=== PATIENT | female | born 1970 | race Caucasian/White ===

== ENCOUNTER 2017-10-30 07:32 | Observation (INO) | payer OTHER, SELFPAY ==
[2017-10-24 11:15] LABS: Hematocrit 40.9 % (37-47); Mean Corp Hgb Conc 31.8 g/gl (32-36); Mean Corpuscular Hgb 27.4 pg (27.0-32.0); Mean Corpuscular Volume 86.3 fL (81-99); Mean Platelet Vol. 10.6 fl (6.2-12.0); Platelet Count 314 K/mm3 (150-450); RBC Distribution Width CV 12.9 % (11.6-14.6); RBC Distribution Width SD 41.1 fl (35.1-43.9); Red Blood Count 4.74 M/mm3 (4.2-5.4); White Blood Count 9.2 K/mm3 (4.4-11.0)
[2017-10-24 11:22] LABS: Prothrombin Time (Protime)PT. 13.5 SECONDS (11.7-14.9)
[2017-10-24 11:24] LABS: Scan Indicated on CBC? Y/N NO
[2017-10-24 11:45] LABS: Pregnancy, Serum, hCG Quali. NEGATIVE Negative (0-9 Nonpreg)
[2017-10-30] VITALS (12 sets, daily range): BP systolic 117–136; BP diastolic 58–94; PULSE 65–89; RESP 16–18; TEMP 36.1–37.1; O2SAT 93–100; BMI 38.1
[2017-10-30 06:34] LABS: Internal QC Validated? YES +Cl - CLEAR BKGD; Pregnancy, Urine Negative Negative
--- NOTE | 2017-10-30 07:30 | HYST_PTH ---
PATIENT: RYANNE MEZA LOC: MS2 U#:[id number] AGE/SX: 47/F ROOM: [facility] [place] RE10/30/[address]: Dr. Bj Gillespie MD : 1970 BED: 1 DIS: 10/31/2017 SPEC #: [id number] RECD: 10/30/17 09:41 STATUS: CARLI KEYLA #: [id number] ANUSHKA: 10/30/17 07:[address]: Bj Gillespie DEPT: SURGICAL PATHOLOGY RECD BY: Dereck Boggs ENTERED: 10/30/17 10:19 SP TYPE: HYSTERECT OTHR DR: Dr. Sharad Cisneros MD Tissues: Uterus, NOS Procedures: Surgery Specimen Level V HEADER OPERATION: Hysterectomy, lap-assisted vaginal, bilateral salpingo-oophorectomy PRE-OP DIAGNOSIS: Excessive and frequent menstruation with regular cycle and intramural leiomyoma of uterus TISSUE SUBMITTED: Uterus, bilateral tubes and ovaries MICROSCOPIC DIAGNOSIS Uterus, bilateral tubes and ovaries, vaginal hysterectomy and bilateral salpingo-oophorectomy: Cervix ? focal cystic changes. Endometrium ? proliferative endometrium. Myometrium ? leiomyomas (largest measuring 4.5 cm in greatest dimension). Adenomyosis. Bilateral fallopian tubes - no pathologic diagnosis. Bilateral ovaries ? physiologic follicular and corpus luteal cysts and mesothelial inclusion cyst. SJ:erich 10/31/17 MICROSCOPIC DESCRIPTION Slides are reviewed. GROSS DESCRIPTION Received in fixative is one container labeled with the patient's name and designated uterus. The specimen consists of a morcellated uterus with attached right and left fallopian tubes received in seven fragments ranging in size from 1.2 to 12 cm in greatest dimension and in aggregate weighing 495 gm. A distinct endocervical canal is not identified. Portions resembling ectocervix are present and free of mass lesions. A triangular-shaped endometrial cavity is present measuring 3.5 x 4 cm. The endometrium is light thomas, velvety and glistening and measures up to 0.2 cm in thickness. The myometrium is distorted by multiple spherical, rubbery nodules ranging in size from 0.2 to 4.5 cm. On cut sections, the nodules display a whirled appearance without areas of cyst formation or necrosis. More than 30 such nodules are identified. The nodules appear to be intramyometrial, subserosal and submucosal in location. Both ovaries are similar in appearance and are light thomas-yellow in color. One measures 4 x 3 x 2 cm. Serial sections of this ovary reveal multiple cysts ranging in size from 0.2 to 1.2 cm and containing clear to bloody fluid. The adjacent fallopian tube measures 5.5 cm in length and 0.8 cm in average diameter. A normal fimbriated end is visible. The other ovary measures 3.8 x 2 x 1.2 cm. Serial sections of this second ovary also reveal multiple cysts ranging in size from 0.2 to 1 cm and containing clear fluid. The adjacent fallopian tube is similar in appearance to the tube previously described and measures 7.5 cm in length and 0.7 cm in average diameter. Pharmacy Benefit Manager sections are submitted in 12 cassettes as follows: 1 & 2 ? cervix, 3-6 ? endometrium and adjacent myometrium, 7 ? largest myometrial mass, 8 ? second largest myometrial mass, 9 ? third largest myometrial mass, 10 ? one ovary, 11 ? fallopian tube adjacent to this ovary, 12 ? the other ovary and fallopian tube. / AM:erich 10/30/17 TC:1 CPT: 82457
[2017-10-30] MEDS: Clindamycin 900 MG/50 ML BAG 75 MG IV (07:35)
--- NOTE | 2017-10-30 07:41 | PCM.DC.VHY ---
Discharge Diet: No Restrictions Discharge Activity: Return to Normal Activity, May Not Drive, May not drive while taking narcotic pain medications., May Shower Return to work on:: 12/02/17 May resume sexual activity in: 6-8 weeks Call your doctor if your incision/area has: Sudden Increased Bleeding, Increased Pain/ Swelling, Increased Redness, Foul Smelling Discharge, Swelling at the incision site Call your doctor if you observe: Fever of 101 or Higher, Change in Color, Inability to urinate, Inability to have a bowel movement, Using more than one pad per hour, Shortness of breath, Chest pain, Calf discomfort, Uncontrolled pain Remove Dressing in (days):: 1 Cleanse incision/area with: Soap & Water Allergies/Adverse Reactions: Allergies Penicillins Allergy (Verified 10/25/17 08:11) Unknown Medications to take at Discharge Vortioxetine Hydrobromide [Brintellix] 10 mg PO DAILY 10/25/17 Estrogens, Conjugated [Premarin] 0.625 mg PO DAILY #30 tab 10/30/17 Ibuprofen [Ibu] 600 mg PO Q6H PRN PRN #30 tab 10/30/17 Oxycodone [Oxyir] 5 - 10 mg PO Q4H PRN PRN 7 Days #30 tab 10/30/17 The following prescriptions were given: Oxycodone [Oxyir] 5 - 10 mg PO Q4H PRN PRN 7 Days #30 tab PRN Reason: Mod-Severe Pain (4-10/10) Ibuprofen [Ibu] 600 mg PO Q6H PRN PRN #30 tab PRN Reason: Pain Estrogens, Conjugated [Premarin] 0.625 mg PO DAILY #30 tab Primary Care Physician: Sharad Cisneros MD [Primary Care Provider] - Please Follow Up With: Bj Gillespie MD When: one week Proposed Discharge Date: 10/31/17
--- NOTE | 2017-10-30 07:49 | OP.PCM_ITS ---
Problem List (1) Menorrhagia with irregular cycle Status: Chronic (2) Fibroid uterus Status: Chronic Qualifiers: Uterine leiomyoma location: intramural, submucous, and subserous Qualified Code(s): D25.1 - Intramural leiomyoma of uterus; D25.0 - Submucous leiomyoma of uterus; D25.2 - Subserosal leiomyoma of uterus Report of Operation Date of Procedure: 10/30/17 Pre-Operative Diagnosis: Menorrhagia, Fibroid Uterus Post-Operative Diagnosis: Same Surgery/Procedure Performed:: Laparoscopic Assisted Vaginal Hysterectomy, Bilateral Salpingooophorectomy Description of Surgical Findings:: 15 weeks size fibroid uterus, normal appearing ovaries and fallopian tubes. Some scarring of bladder to anterior lower uterine segment. Normal appearing gall bladder and appendix. Stomach appeared normal. Liver appeared to have fatty changes. coding team lead: Linda Nicholson Type of Anesthesia:: General Anesthesiologist: Levar Cespedes Special Medications: none Specimen's removed: Uterus, ovaries, and fallopian tubes Drains: michelle Estimated Blood Loss (mL): 600cc Fluids Replaced: 1300cc Description of Procedure: Niecy was taken to the OR with IV running. Discussion was made prior to the procedure and she determined would like to have ovaries removed at the time of the hysterectomy. She was given clindamycin and gentamicin intravenously for surgical prophylaxis prior to the start of the surgery. General anesthesia was introduced without complication. She was then prepped and draped in the dorsal lithotomy. A michelle catheter was then placed. Attention was then directed to the vagina where a weighted speculum was placed. The cervix was identified, grasped with a single toothed tenaculum and a Zumi type uterine manipulator was placed. The tenaculum and speculum were then removed. Attention was directed to the abdomen where a 5mm vertical incision was made in the lower base of the umbilicus. The underlying subcutaneous tissue was dissected down to the level of fascia using blunt dissection with a Darline clamp. The abdominal wall was then elevated and a Veress needle was placed through the umbilical defect into the abdomen. The abdomen was then inflated with CO2 gas to a pressure of 12 Torr. The Veress needle was removed and replaced with a 5mm trocar and sleeve. The trocar was then removed and replaced with the laparoscope. Two lateral 5 mm side ports were then placed one on the left an one on the right side about level with the umbilicus and lateral to the inferior epigastric vessels. These were placed under direct visualization of the laparoscope. Hemostasis was assured after placement of the laparoscopic ports. A thorough survey of the pelvis and abdomen was then performed. Attention was then directed to the left adnexa. The left infindibulopelovic ligament was identified, grased with the LIgasure device, cauterized and cute. The mesoovarian tissue was the dissected from the distal end to the uterus. The Round ligament was the cauterized and cut. The Broad ligament was then dissected from the upper portion of the uterus to the cervicouterine junction. The anterior and posterior leaves of the brosd ligament were then bluntly and the uterine artery cauterized and cut. The vesicouterine peritoneum was then carefully undermined and dissected thus creating a bladder flap. The paracervical tissue was then dissected close to the cervix down to the level of the uterosacral ligament. Attention was then directed to the right side of the pelvis which was similarly dissected. Attention was then directed to the vagina were a weighted speculum was placed. The uterine manipulator was removed and replaced with two single toothed tenaculum for traction. The cervicovaginal epithelium was then superficially injected with a dilute pitressin solution. Using the Bovie cautery the cervicovaginal epithelium was circumfrentially incised then pushed superiorly. The vesicovaginal peritoneum was then identified and entered sharply. The posterior rectovaginal peritoneum was similarly identified and entered sharply. A long weighted speculum was placed through this defect. The uterosacral ligaments were then clamped with Héctor clamps, cut and suture ligated. These ties were held for future incorporation with the lateral angles of the vaginal cuff. The paracervical tissue on each side was the grasped with Héctor clamps cut and suture ligated thus removing the remaining connections of the cervix to the pelvic sidewall. Due to the bulk of the uterus it was necessary to bivalve the uterus in order to facilitate removal. Once the uterus , cervix, and adnexa were removed the vaginal cuff was closed with a series of interrupted and figure of eight sutures of 0-VIcryl suture. All instruments were then removed from the vagina and attention directed back to the abdomen. The abdomen was reinflated with CO2 gas. A thorough inspection of the surgical sites found them to be hemostatic. Lindy was placed over the surgical sites. The laparoscopic port sites were removed after gas was evacuated, The skin incisions were closed with subcuticular sutures of 4-0 Monocryl. Sponge, lap, instrucment, and needle counts were correct. SHe was reversed from anesthesia and taken to the recovery room in stable condition. Grafts/Implants Used: none - Complications none - Admit VTE Documentation VTE Present on Admission: No VTE Mechan Device Prophylaxis: SCD's VTE Pharm Prophylaxis ordered?: No
[2017-10-30] MEDS: Vasopressin 20 UNITS/ML Vial (08:55)
[2017-10-30] MEDS: Bupivacaine 0.25% 30 ML Vial (09:30)
[2017-10-30] MEDS: Clindamycin 600 MG/50 ML BAG 100 MG IV ×2 (12:25→17:39)
[2017-10-30] MEDS: Ketorolac 30 MG/ML Syringe IV ×2 (12:26→20:13)
[2017-10-30] MEDS: Acetaminophen 500 MG Tablet 1000 MG PO ×2 (13:32→22:52)
[2017-10-30] MEDS: Lactated Ringers 1,000 ML 125 ML IV ×2 (14:36→22:55)
[2017-10-30] MEDS: oxyCODONE 5 MG Tablet PO ×2 (17:39→22:53)
[2017-10-30] MEDS: Estrogens,Conj. 0.625 MG Tablet PO (17:40)
--- NOTE | 2017-10-30 18:08 | NURSING ---
k pad to abdomen
[2017-10-30] MEDS: HYDROmorphone 1 MG/ML Syringe IV (18:55)
[2017-10-31 02:00] VITALS: BP 114/70; PULSE 82; RESP 16; TEMP 36.8; O2SAT 98
[2017-10-31] MEDS: Ketorolac 30 MG/ML Syringe IV ×3 (02:15→14:54)
[2017-10-31] MEDS: Acetaminophen 500 MG Tablet 1000 MG PO ×2 (06:00→14:54)
[2017-10-31 06:18] LABS: Hemoglobin 9.8 g/dl (12.0-15.0); Mean Corp Hgb Conc 32.7 g/gl (32-36); Mean Corpuscular Hgb 28.4 pg (27.0-32.0); Mean Platelet Vol. 10.7 fl (6.2-12.0); Platelet Count 265 K/mm3 (150-450); RBC Distribution Width CV 12.7 % (11.6-14.6); RBC Distribution Width SD 38.8 fl (35.1-43.9); Red Blood Count 3.45 M/mm3 (4.2-5.4); Scan Indicated on CBC? Y/N NO; White Blood Count 19.7 K/mm3 (4.4-11.0)
[2017-10-31 07:21] VITALS: O2SAT 98
--- NOTE | 2017-10-31 08:06 | PN.OBGYN_ITS ---
Subjective: Appears well this morning. Pain rated 2/10. Has taken some oxycodone and ibuprofen. No significant nausea. Tolerating PO. Able to void this morning. Urine is still blood tinged but much clearer than last evening. Objective: Afeb VSS. Hgb appropriate considering surgical blood loss. Urine output good. - Physical Exam General: Alert, Oriented x3, Cooperative, No apparent distress Lungs: Clear to auscultation, Normal air movement Cardiovascular: Regular rate, Regular Rhythm Abdomen: Soft, Non Tender, Non-Distended, Passing Flatus, - - Incision sites dry , no erythema Extremities: No edema Skin: No rashes Neurological: Neuro grossly intact Psych/Mental Status: Normal Affect Comment: Scant vaginal spotting Vital Signs Temp Pulse Resp BP Pulse Ox 98.3 F 82 16 114/70 98 10/31/17 02:00 10/31/17 02:00 10/31/17 02:00 10/31/17 02:00 10/31/17 02:00 Oxygen Delivery Method Room Air Weight: 188 lb 11.451 oz Body Mass Index (BMI) 38.1 Intake and Output for Last 24 Hours 10/29/18 10/30/17 10/31/17 23:59 23:59 23:59 Intake Total 1400 / 1400 4750 / 4750 Output Total 450 / 450 2600 / 2600 Balance 950 / 950 2150 / 2150 Laboratory Tests Past 24 Hrs 10/31/17 05:48 WBC 19.7 H RBC 3.45 L Hgb 9.8 L Hct 30.0 L MCV 87.0 MCH 28.4 MCHC 32.7 RDW 12.7 RDW Differential 38.8 Plt Count 265 MPV 10.7 Medical Necessity - Tobacco Use Smoking Status: Never smoker Tobacco Use: Non-smoker Assessment/Plan Appears well on POD#1 s/p LAVH/BSO. Home going instructions and warnings given. Particularly emphasized watching for occult signs of bladder injury including worsening hematuria, inability to void, or flank pain given hematuria after surgery. She is able to void this morning which makes likelyhood of urinary injury less likely. Will be discharged home on estrogen therapy given BSO.
--- NOTE | 2017-10-31 08:06 | PCM.DC.SUM ---
Discharge Date and Diagnosis Date of Admission: 10/30/17 Date of Discharge: 10/31/17 - Primary Discharge Diagnosis S/P LAVH/BSO - Secondary Discharge Diagnosis Chronic Problems Menorrhagia with irregular cycle (Chronic) Fibroid uterus (Chronic) Hospital Course and Treatment Operations: - - LAVH/BSO Summary of Care Provided: The patient is a 47 year old F admitted for scheduled LAVH/BSO secondary to menorrhagia and dysmenorrhea with fibroid uterus. Post operative course unremarkable except for persistent mild hematuria. She was discharged home on POD#1. Home going instructions and warnings given. Discharge Diet: No Restrictions Discharge Activity: Return to Normal Activity, May Not Drive, May not drive while taking narcotic pain medications., May Shower Return to work on:: 12/02/17 May resume sexual activity in: 6-8 weeks Call your doctor if your incision/area has: Sudden Increased Bleeding, Increased Pain/ Swelling, Increased Redness, Foul Smelling Discharge, Swelling at the incision site Call your doctor if you observe: Fever of 101 or Higher, Change in Color, Inability to urinate, Inability to have a bowel movement, Using more than one pad per hour, Shortness of breath, Chest pain, Calf discomfort, Uncontrolled pain Remove Dressing in (days):: 1 Cleanse incision/area with: Soap & Water Home Medications: Medications to take at Discharge Vortioxetine Hydrobromide [Brintellix] 10 mg PO DAILY 10/25/17 Estrogens, Conjugated [Premarin] 0.625 mg PO DAILY #30 tab 10/30/17 Ibuprofen [Ibu] 600 mg PO Q6H PRN PRN #30 tab 10/30/17 Oxycodone [Oxyir] 5 - 10 mg PO Q4H PRN PRN 7 Days #30 tab 10/30/17 Following Prescrptions Were Given to Patient: Oxycodone [Oxyir] 5 - 10 mg PO Q4H PRN PRN 7 Days #30 tab PRN Reason: Mod-Severe Pain (4-10/10) Ibuprofen [Ibu] 600 mg PO Q6H PRN PRN #30 tab PRN Reason: Pain Estrogens, Conjugated [Premarin] 0.625 mg PO DAILY #30 tab Primary Care Physician: Sharad Cisneros MD [Primary Care Provider] - Please Follow Up With: Bj Gillespie MD When: one week Disposition: Home Minutes spent on discharge:: 15 Patient Condition:: Good Medical Necessity - Tobacco Use Smoking Status: Never smoker Tobacco Use: Non-smoker Meaningful Use Info Meaningful Use Diagnoses (Choose all that apply): None applicable
[2017-10-31] MEDS: Ondansetron 4 MG/2 ML Vial IV (08:58)
[2017-10-31] MEDS: Estrogens,Conj. 0.625 MG Tablet PO (09:00)
[2017-10-31] MEDS: 0.9% NaCl Peripheral Flush Adult/Peds IV ×2 (09:00→10:20)
[2017-10-31] MEDS: VORTIOXETINE HYDROBROMIDE 20 MG TABLET 10 MG PO (09:00)
[2017-10-31 09:10] VITALS: BP 112/60; PULSE 59; RESP 16; TEMP 36.8; O2SAT 99
[2017-10-31] MEDS: proMETHazine 25 MG/ML Syringe 12.5 MG IV (10:19)
[2017-10-31] MEDS: oxyCODONE 5 MG Tablet PO (12:02)
[2017-10-31 16:23] VITALS: BP 123/71; PULSE 71; RESP 16; TEMP 37.3; O2SAT 94
== END 2017-10-31 16:51 | disposition home or self-care (01) ==
LOC: MS2 07:49
PROVIDERS: Admitting Provider Obstetrics & Gynecology; Family Provider Family Medicine; PCP Family Medicine; Visit Provider Obstetrics & Gynecology
PROC: 0UT9FZZ Resection of Uterus, Via Natural or Artificial Opening With Percutaneous Endoscopic Assistance (ICD-10-PCS; CPT 58554; principal; 2017-10-30 07:05)
DX: D25.1 Intramural leiomyoma of uterus (principal); D25.0 Submucous leiomyoma of uterus; D25.2 Subserosal leiomyoma of uterus; N92.1 Excessive and frequent menstruation with irregular cycle; R31.9 Hematuria, unspecified; F41.9 Anxiety disorder, unspecified; F32.9 Major depressive disorder, single episode, unspecified; Z79.899 Other long term (current) drug therapy; N83.12 Corpus luteum cyst of left ovary; N83.11 Corpus luteum cyst of right ovary; N80.0 Endometriosis of uterus
CPT/HCPCS: 58554; 36415; 81025; 84703; 85027; 85610; 85730; 86850; 86900; 88307; 96361; 96365; 96366; 96375; 96376; 99218; J7120; A4216; G0378; G0379; J2405